=== PATIENT | male | born 1950 | race Caucasian/White ===

== ENCOUNTER 2017-05-16 17:21 | Emergency (ER) | END 2017-05-16 23:35 | disposition left against medical advice (07) ==

== ENCOUNTER 2017-05-29 18:05 | Inpatient (IN) | END 2017-06-05 21:20 | disposition home or self-care (01) | DRG 699 ==

== ENCOUNTER 2017-06-11 10:53 | Emergency (ER) | END 2017-06-11 14:18 | disposition home or self-care (01) ==

== ENCOUNTER 2017-07-09 09:41 | Emergency (ER) | END 2017-07-09 18:08 | disposition left against medical advice (07) ==

== ENCOUNTER 2017-07-27 13:38 | Emergency (ER) | END 2017-07-27 16:02 | disposition home or self-care (01) ==

== ENCOUNTER 2017-08-10 06:53 | Emergency (ER) | END 2017-08-10 08:57 | disposition home or self-care (01) ==

== ENCOUNTER 2017-12-11 07:46 | Day surgery (SDC) | END 2017-12-12 14:45 | disposition home or self-care (01) ==